=== PATIENT | male | born 1990 | race African-American/Black ===

== ENCOUNTER 2018-06-25 15:16 | Emergency (ER) | payer SELFPAY ==
[~2018-06-25] VITALS: Ht 175.3 cm; Wt 90.7 kg
[~2018-06-25 15:16] MED LIST: ALBUTEROL SULF8.5 GM INH; AUGMENTIN TAB875 MG ORAL; BACTRIM DS TAB1 EAC1 ORAL; BENTYL10 MG ORAL; CLEOCIN150 MG ORAL; DOXYCYCLINE MO100 MG ORAL; KEFLEX500 MG ORAL; NKM; PHENERGAN6.25 MG/5 ORAL
[2018-06-25 15:38] VITALS: BP 150/93
[2018-06-25] MEDS ORDERED: Azithromycin 250mg tab ORAL ONE (15:45)
[2018-06-25] MEDS ORDERED: Lidocaine 1% MPF 10mg/ml 5ml INJ ONE (15:45)
[2018-06-25] MEDS ORDERED: METRONIDAZOLE500 MG ORAL (15:55)
[2018-06-25 16:03] VITALS: BP 150/93
--- NOTE | 2018-06-25 17:08 | Emergency Room Report ---
History of Present Illness General Chief Complaint: Male Urogenital Problems Source: Patient Present Illness HPI 28-year-old male presents to ED for evaluation. Patient complaining of discharge 3 days. States he had unprotected sex approximately one week ago. States the discharge is green. Denies dysuria. Denies fevers or chills. Denies any scrotal pain. No other aggravating relieving factors. Denies any other associated symptoms Allergies: Coded Allergies: No Known Allergies (Unverified , 11/28/13) Patient History Past Medical History: asthma Past Surgical History: none Pertinent Family History: none Immunizations: UTD Reviewed Nursing Documentation: PMH: Agreed; PSxH: Agreed Nursing Documentation-PMH Past Medical History: No History, Except For Hx Cardiac Problems: No Hx Hypertension: No Hx Pacemaker: No Hx Asthma: Yes Hx COPD: No Hx Diabetes: No Hx Cancer: No Hx Gastrointestinal Problems: No Hx Dialysis: No Hx Neurological Problems: No Hx Cerebrovascular Accident: No Hx Seizures: No Review of Systems All Other Systems: negative except mentioned in HPI Physical Exam Vital Signs Date Time Temp Pulse Resp B/P (MAP) Pulse Ox O2 Delivery O2 Flow Rate FiO2 06/25/18 15:24 98.2 87 18 150/93 96 Room Air 98.2 Sp02 EP Interpretation: reviewed, normal General Appearance: no apparent distress, alert, GCS 15, non-toxic Head: normocephalic Eyes: bilateral eye normal inspection, bilateral eye PERRL ENT: normal ENT inspection Neck: normal inspection Respiratory: normal inspection Cardiovascular #1: normal inspection Gastrointestinal: normal inspection Rectal: deferred Genitourinary: no CVA tenderness Musculoskeletal: normal inspection Neurologic: alert, oriented x3, responsive, motor strength/tone normal, sensory intact, speech normal Psychiatric: normal inspection Skin: normal inspection Lymphatic: normal inspection Medical Decision Making Diagnostic Impression: Primary Impression: Urethritis ER Course Hospital Course 32-year-old male presents ED with greenish urethral discharge. History of unprotected sex Differential diagnoses include: trichimonas, gonorrhea, chlamydia Clinical course Patient placed on stretcher. After initial history physical exam reveals a young male in no acute distress. Physical exam unremarkable. No testicular pain or swelling. No noted urethral discharge We will treat him clinically for Trichomonas and gonorrhea/Chlamydia. Stress findings with patient. Patient safe for discharge. We will provide PMD/ clinic referrals Given azithromycin/Rocephin in ED Diagnosis - urethritis Stable and discharged home with prescriptions for Rx Flagyl. Instructed to followup with PMD. Return to ED if symptoms recur or worsen Last Vital Signs Date Time Temp Pulse Resp B/P (MAP) Pulse Ox O2 Delivery O2 Flow Rate FiO2 06/25/18 16:03 98.2 73 18 150/93 96 Room Air 98.2 Status: improved Disposition: HOME, SELF-CARE Condition: Stable Scripts Metronidazole* (FLAGYL*) 500 Mg Tablet 500 MG ORAL THREE TIMES A DAY, #21 TAB Prov: Deshaun Granados MD 06/25/18 Referrals: [facility] Magallanes [facility] Patient Instructions: Urethritis, Adult Deshaun Granados MD Jun 25, 2018 17:08
== END 2018-06-25 16:05 | disposition home or self-care (01) ==
LOC: EMR 15:34
DX: N34.2 Other urethritis (principal); J45.909 Unspecified asthma, uncomplicated
CPT/HCPCS: 96372; 99283; J0696

== ENCOUNTER 2018-10-12 13:47 | Emergency (ER) | payer MEDICAID ==
[~2018-10-12] VITALS: Ht 175.3 cm; Wt 81.6 kg
[~2018-10-12 13:47] MED LIST changes: +METRONIDAZOLE500 MG ORAL
[2018-10-12 14:00] VITALS: BP 135/90
[2018-10-12] MEDS ORDERED: Dicyclomine HCl 10mg/5ml oral soln ORAL ONE (14:15)
[2018-10-12] MEDS ORDERED: Lidocaine 2% Visc 15ml soln ORAL ONE (14:15)
[2018-10-12] MEDS ORDERED: Simethicone 80mg tab ORAL ONE (14:15)
[2018-10-12] MEDS ORDERED: Mylanta II UD 30ml ORAL ONE (14:15)
--- NOTE | 2018-10-12 14:47 | Emergency Room Report ---
History of Present Illness General Chief Complaint: Abdominal Pain Source: Patient Present Illness HPI 28-year-old male presents to the emergency department complaining of 1 day of nausea followed by 2 days of diarrhea and lower abdominal cramping. Patient denies fevers, chills, recent travel or ill contacts with similar symptoms. Patient denies vomiting and denies having blood in his stool or black tarry stools. Patient denies prolonged anti-inflammatory use or antibiotic use. Reports that his cramping pain is migratory and it is intermittent in nature. Allergies: Coded Allergies: No Known Allergies (Unverified , 11/28/13) Patient History Past Medical History: see triage record Past Surgical History: none Pertinent Family History: none Reviewed Nursing Documentation: PMH: Agreed; PSxH: Agreed Nursing Documentation-PMH Past Medical History: No History, Except For Hx Cardiac Problems: No Hx Hypertension: No Hx Pacemaker: No Hx Asthma: Yes Hx COPD: No Hx Diabetes: No Hx Cancer: No Hx Gastrointestinal Problems: No Hx Dialysis: No Hx Neurological Problems: No Hx Cerebrovascular Accident: No Hx Seizures: No Review of Systems All Other Systems: negative except mentioned in HPI Physical Exam Vital Signs Date Time Temp Pulse Resp B/P (MAP) Pulse Ox O2 Delivery O2 Flow Rate FiO2 10/12/18 13:54 98.4 71 20 139/89 100 Room Air Sp02 EP Interpretation: reviewed, normal General Appearance: no apparent distress, alert, GCS 15, non-toxic Head: normocephalic, atraumatic Eyes: bilateral eye normal inspection, bilateral eye PERRL ENT: hearing grossly normal, normal voice Neck: full range of motion Respiratory: lungs clear, normal breath sounds, speaking full sentences Cardiovascular #1: regular rate, rhythm Gastrointestinal: normal bowel sounds, non tender, soft, non-distended, no guarding Rectal: deferred Musculoskeletal: back normal, gait/station normal, normal range of motion Neurologic: alert, oriented x3, responsive, motor strength/tone normal, sensory intact, normal gait, speech normal, grossly normal Psychiatric: judgement/insight normal Skin: normal color, no rash, warm/dry, well hydrated Medical Decision Making PA Attestation Dr. Vázquez is my supervising Physician whom patient management has been discussed with. Diagnostic Impression: Primary Impression: Diarrhea in adult patient Additional Impression: Gastroenteritis ER Course 28-year-old male presents to the emergency department complaining of 1 day of nausea followed by 2 days of diarrhea and lower abdominal cramping. Patient denies fevers, chills, recent travel or ill contacts with similar symptoms. Patient denies vomiting and denies having blood in his stool or black tarry stools. Patient denies prolonged anti-inflammatory use or antibiotic use. Reports that his cramping pain is migratory and it is intermittent in nature. Ddx considered but are not limited to GE, colitis, acute appy, SBO, Cyclical Vomiting secondary to THC, GI bleed, dehydration Vital signs: pt. is afebrile, H&PE are most consistent with GE most likely viral in etiology, no evidence to suggest acute abdomen on physical exam. ORDERS: -None required at this time, the dx is clinical. ED INTERVENTIONS: - Bentyl -Simethicone - Lidocaine Viscous PO -I do not identify an emergent condition at this time. With current presentation , pt. is stable for close outpatient follow up and conservative treatment. D/ w pt. to return promptly to ED with worsening or new symptoms.- Pt. verbalizes' understanding and agreement with proposed treatment plan.proposed treatment plan. DISCHARGE: At this time pt. is stable for d/c to home. Will provide printed patient care instructions, and any necessary prescriptions. Care plan and follow up instructions have been discussed with the patient prior to discharge. Last Vital Signs Date Time Temp Pulse Resp B/P (MAP) Pulse Ox O2 Delivery O2 Flow Rate FiO2 10/12/18 14:00 98.7 70 18 135/90 99 Room Air Disposition: HOME, SELF-CARE Condition: Stable Scripts Ranitidine Hcl* (ZANTAC*) 150 Mg Tablet 150 MG ORAL TWICE A DAY for 7 Days, #14 TAB Prov: Janel Brady 10/12/18 Simethicone* (SIMETHICONE*) 80 Mg Tab.chew 80 MG ORAL Q8H PRN for GAS PAIN, #20 TAB 0 Refills Prov: Janel Brady 10/12/18 Dicyclomine Hcl* (DICYCLOMINE HCL*) 10 Mg Capsule 10 MG PO QID for 3 Days, #12 CAP Prov: Janel Brady 10/12/18 Patient Instructions: Viral Gastroenteritis, Adult Additional Instructions: Take medications as directed. Follow up with a Primary Care Provider in 3-5 days, even if your symptoms have resolved. --Please review list of primary care clinics, if you do not already have a primary care provider Return sooner to ED if new symptoms occur, or current symptoms become worse. - Please note that this Emergency Department Report was dictated using [employer] grower technology software, occasionally this can lead to erroneous entry secondary to interpretation by the dictation equipment. Janel Brady Oct 12, 2018 14:47
[2018-10-12] MEDS ORDERED: ZANTAC150 MG ORAL (14:56)
[2018-10-12] MEDS ORDERED: DICYCLOMINE HCL10 MG PO (14:56)
[2018-10-12] MEDS ORDERED: SIMETHICONE80 MG ORAL (14:56)
[2018-10-12 15:06] VITALS: BP 132/89
== END 2018-10-12 15:08 | disposition home or self-care (01) ==
LOC: EMR 14:31
DX: K52.9 Noninfective gastroenteritis and colitis, unspecified (principal); J45.909 Unspecified asthma, uncomplicated
CPT/HCPCS: 99283

== ENCOUNTER 2019-10-08 19:18 | Emergency (ER) | payer MEDICAID ==
[~2019-10-08] VITALS: Ht 175.3 cm; Wt 69.9 kg
[~2019-10-08 19:18] MED LIST changes: +DICYCLOMINE HCL10 MG PO; +SIMETHICONE80 MG ORAL; +ZANTAC150 MG ORAL
--- NOTE | 2019-10-08 19:33 | NUR ---
ED Nurse Note: received pt from triage, pt c/o abd pain, nausea, vomiting and diarrhea since this morning along with headache, pt states he ate chicken sandwich last night and the symptoms started this morning. pt skin warm and dry, resp even and unlabored on RA, no active vomiting nor diarrhea at this time, vss, noted pt HR 120s in triage. will cont monitor.
[2019-10-08] MEDS ORDERED: Dicyclomine HCl 10mg/5ml oral soln ORAL ONE (19:45)
[2019-10-08] MEDS ORDERED: Mylanta II UD 30ml ORAL ONE (19:45)
[2019-10-08] MEDS ORDERED: Lidocaine 2% Visc 15ml soln ORAL ONE (19:45)
[2019-10-08 19:54] VITALS: BP 151/93
[2019-10-08 20:10] LABS: HEMATOCRIT 53.1 % (42.0-52.0); HEMOGLOBIN 16.9 G/DL (14.2-18.0); MEAN CORPUSCULAR VOLUME 84 FL (80-99); PLATELET COUNT 319 K/UL (150-450); RED BLOOD COUNT 6.32 M/UL (4.70-6.10); RED CELL DISTRIBUTION WIDTH 12.1 % (11.6-14.8); WHITE BLOOD COUNT 6.5 K/UL (4.8-10.8)
[2019-10-08 20:16] LABS: ANION GAP 10 mmol/L (5-15); BLOOD UREA NITROGEN 13 mg/dL (7-18); CALCIUM 9.5 MG/DL (8.5-10.1); CARBON DIOXIDE 28 MMOL/L (21-32); CHLORIDE 101 MMOL/L (98-107); POTASSIUM 4.2 MMOL/L (3.5-5.1); SODIUM 138 MMOL/L (136-145)
[2019-10-08 20:21] LABS: ALANINE AMINOTRANSFERASE 17 U/L (12-78); ALBUMIN 4.1 G/DL (3.4-5.0); ALKALINE PHOSPHATASE 58 U/L (46-116); ASPARTATE AMINO TRANSFERASE 19 U/L (15-37); BILIRUBIN,TOTAL 0.9 MG/DL (0.2-1.0)
[2019-10-08] MEDS ORDERED: RANITIDINE HCL150 MG ORAL (20:43)
[2019-10-08] MEDS ORDERED: ONDANSETRON ODT4 MG BC (20:43)
[2019-10-08] MEDS ORDERED: DICYCLOMINE HCL10 MG ORAL (20:43)
[2019-10-08] MEDS ORDERED: Acetaminophen 500mg (ES) tab ORAL ONE (20:45)
--- NOTE | 2019-10-08 20:57 | NUR ---
Note nickione in EDM - 10/08/19 at 2058 by SHELLY ED Nurse Note: pt is cleared to be d/c per ERMD, pt discharge and aftercare instruction provided w/ prescription, pt education done via discussion and handout, pt verbalized understanding, pt advised to follow up with pcp or return to ed if changes in condition, vss, ambulatory w/ steady gait, left accompanied by significant other.
--- NOTE | 2019-10-08 20:58 | NUR ---
ED Nurse Note: pt is cleared to be d/c per ERMD, pt discharge and aftercare instruction provided w/ prescription, pt education done via discussion and handout, pt verbalized understanding, pt advised to follow up with pcp or return to ed if changes in condition, vss, ambulatory w/ steady gait, iv d/c and id band removed.
[2019-10-08 20:59] VITALS: BP 155/92
--- NOTE | 2019-10-08 21:08 | Emergency Room Report ---
History of Present Illness General Chief Complaint: Nausea, Vomiting, and Diarrhea Source: Patient Present Illness Allergies: Coded Allergies: No Known Allergies (Unverified , 11/28/13) Nursing Documentation-[facility] Past Medical History: No History, Except For Hx Cardiac Problems: No Hx Hypertension: No Hx Pacemaker: No Hx Asthma: Yes Hx COPD: No Hx Diabetes: No Hx Cancer: No Hx Gastrointestinal Problems: No Hx Dialysis: No Hx Neurological Problems: No Hx Cerebrovascular Accident: No Hx Seizures: No Physical Exam Vital Signs Date Time Temp Pulse Resp B/P (MAP) Pulse Ox O2 Delivery O2 Flow Rate FiO2 10/08/19 19:22 99.3 118 18 150/88 (108) 97 Room Air Medical Decision Making Diagnostic Impression: Primary Impression: Gastroenteritis Labs Test 10/08/19 19:40 White Blood Count 6.5 K/UL (4.8-10.8) Red Blood Count 6.32 M/UL (4.70-6.10) Hemoglobin 16.9 G/DL (14.2-18.0) Hematocrit 53.1 % (42.0-52.0) Mean Corpuscular Volume 84 FL (80-99) Mean Corpuscular Hemoglobin 26.8 PG (27.0-31.0) Mean Corpuscular Hemoglobin Concent 31.9 G/DL (32.0-36.0) Red Cell Distribution Width 12.1 % (11.6-14.8) Platelet Count 319 K/UL (150-450) Mean Platelet Volume 4.0 FL (6.5-10.1) Neutrophils (%) (Auto) % (45.0-75.0) Lymphocytes (%) (Auto) % (20.0-45.0) Monocytes (%) (Auto) % (1.0-10.0) Eosinophils (%) (Auto) % (0.0-3.0) Basophils (%) (Auto) % (0.0-2.0) Sodium Level 138 MMOL/L (136-145) Potassium Level 4.2 MMOL/L (3.5-5.1) Chloride Level 101 MMOL/L (98-107) Carbon Dioxide Level 28 MMOL/L (21-32) Anion Gap 10 mmol/L (5-15) Blood Urea Nitrogen 13 mg/dL (7-18) Creatinine 1.0 MG/DL (0.55-1.30) Estimat Glomerular Filtration Rate > 60 mL/min (>60) Glucose Level 80 MG/DL (74-106) Calcium Level 9.5 MG/DL (8.5-10.1) Total Bilirubin 0.9 MG/DL (0.2-1.0) Aspartate Amino Transf (AST/SGOT) 19 U/L (15-37) Alanine Aminotransferase (ALT/SGPT) 17 U/L (12-78) Alkaline Phosphatase 58 U/L (46-116) Total Protein 8.2 G/DL (6.4-8.2) Albumin 4.1 G/DL (3.4-5.0) Globulin 4.1 g/dL Albumin/Globulin Ratio 1.0 (1.0-2.7) Lipase 50 U/L (73-393) Last Vital Signs Date Time Temp Pulse Resp B/P (MAP) Pulse Ox O2 Delivery O2 Flow Rate FiO2 10/08/19 20:59 97.8 101 18 155/92 99 Room Air Status: improved Disposition: HOME, SELF-CARE Condition: Stable Scripts Dicyclomine Hcl* (DICYCLOMINE HCL*) 10 Mg Capsule 10 MG ORAL QID, #20 CAP Prov: Deshaun Granados MD 10/08/19 Ondansetron Odt* (ZOFRAN ODT*) 4 Mg Tab.rapdis 4 MG BC EVERY 6 HOURS PRN for Nausea & Vomiting, #20 TAB 0 Refills Prov: Deshaun Granados MD 10/08/19 Ranitidine Hcl* (ZANTAC*) 150 Mg Tablet 150 MG ORAL TWICE A DAY, #30 TAB Prov: Deshaun Granados MD 10/08/19 Referrals: NON PHYSICIAN (PCP) Yenifer Magallanes Comp. [facility] Patient Instructions: Viral Gastroenteritis, Adult, [id number] Deshaun Granados MD Oct 08, 2019 21:08
== END 2019-10-08 20:59 | disposition home or self-care (01) ==
LOC: EMR 19:35
DX: K52.9 Noninfective gastroenteritis and colitis, unspecified (principal)
CPT/HCPCS: 36415; 80053; 83690; 85007; 85025; 96361; 96374; 96375; J2405; J7030; S0028; Z7502; 99284